=== PATIENT | female | born 1975 | race Hispanic/Latino ===

== ENCOUNTER 2020-04-01 12:13 | Outpatient (CLI) | payer BC | END 2020-04-01 12:14 | disposition home or self-care (01) | LOC: LAB 12:13 | PROVIDERS: ATTEND Obstetrics & Gynecology | DX: Z79.890 Hormone replacement therapy (principal) | CPT/HCPCS: 36415; 82670; 83001; 84443 ==

== ENCOUNTER 2020-07-28 15:38 | Outpatient (CLI) | payer BC ==
[2020-07-28 16:42] LABS: Basophils # (Auto) 0.1 K/mm3 (0.0-0.1); Basophils % (Auto) 0.8 % (0.0-1.8); Eosinophils # (Auto) 0.2 K/mm3 (0.0-0.4); Eosinophils % (Auto) 2.6 % (0.0-4.3); Hematocrit 37.3 % (30.3-42.9); Hemoglobin 12.5 gm/dl (10.1-14.3); Lymphocytes # (Auto) 2.1 K/mm3 (1.2-5.4); Lymphocytes % (Auto) 32.3 % (13.4-35.0); Mean Corpuscular HGB Conc 34 % (30-34); Mean Corpuscular Volume 94 fl (79-97); Monocytes # (Auto) 0.5 K/mm3 (0.0-0.8); Monocytes % (Auto) 7.1 % (0.0-7.3); Platelet Count 238 K/mm3 (140-440); Red Blood Count 3.99 M/mm3 (3.65-5.03); Red Cell Distribution Width 13.1 % (13.2-15.2)
[2020-07-28 16:43] LABS: Bilirubin,Urine NEG (Negative); Blood,Urine NEG (Negative); Color,Urine Yellow (Yellow); Mucus,Urine FEW /HPF; Protein,Urine <15 mg/dL mg/dL (Negative); Urobilinogen,Urine < 2.0 mg/dL (<2.0)
[2020-07-28 17:06] LABS: Chol/HDL Ratio 4.18 %
[2020-08-01 11:55] LABS: Vitamin D, 25-OH, D2 <4 ng/mL
== END 2020-07-28 15:39 | disposition home or self-care (01) ==
LOC: LAB 15:38
DX: I10 Essential (primary) hypertension (principal); N95.1 Menopausal and female climacteric states; Z79.890 Hormone replacement therapy; Z90.721 Acquired absence of ovaries, unilateral
CPT/HCPCS: 36415; 80061; 81001; 82306; 82670; 83001; 84439; 84443; 85025

== ENCOUNTER 2020-10-11 10:04 | Outpatient (CLI) | payer BC ==
--- NOTE | 2020-10-11 12:06 | Mammography Report ---
DIGITAL SCREENING MAMMOGRAM WITH CAD, 10/11/2020 CLINICAL INFORMATION / INDICATION: Routine screening mammography. SCREENING MAMMO TECHNIQUE: Digital bilateral 2D mammography was obtained in the craniocaudal and mediolateral obliqu e projections. This examination was interpreted with the benefit of Computer-Aided Detection analysis . COMPARISON: None currently available. FINDINGS: Breast Density: There are scattered areas of fibroglandular density. No dominant mass, suspicious calcifications, or architectural distortion in either breast. IMPRESSION: No mammographic evidence of malignancy. Follow up recommendation: Routine yearly BI-RADS Category 1: Negative. A "normal" or negative report should not discourage follow up or biopsy of a clinically significant f inding. A written summary of these findings will be mailed to the patient. The patient will be entered into a mammography reporting system which will generate a reminder letter for the patient's next appointmen t at the appropriate interval. The [employer] recommends yearly mammograms starting at age 40 and continuing as l david as a woman is in good health. Breast MRI is recommended for women with an approximate 20-25% or greater lifetime risk of breast cancer, including women with a strong family history of breast or ova jennifer cancer or who have been treated for Hodgkin's disease. Signer Name: Delano Lentz MD Signed: 10/11/2020 12:02 PM Workstation Name: [id number]
== END 2020-10-11 10:05 | disposition home or self-care (01) ==
LOC: SPVWC 10:04
PROVIDERS: ATTEND Internal Medicine
DX: Z12.31 Encounter for screening mammogram for malignant neoplasm of breast (principal)
CPT/HCPCS: 77067

== ENCOUNTER 2021-01-13 09:43 | Outpatient (CLI) | payer BC | END 2021-01-13 09:44 | disposition home or self-care (01) | LOC: LAB 09:43 | PROVIDERS: ATTEND Obstetrics & Gynecology | DX: N95.1 Menopausal and female climacteric states (principal) | CPT/HCPCS: 36415; 82670; 83001; 84443 ==